=== PATIENT | female | born 1965 | race Caucasian/White ===

== ENCOUNTER 2025-06-24 12:23 | Outpatient (AMB) | payer MEDICARE, MEDICAID, SELFPAY ==
--- NOTE | 2025-06-24 13:26 | A.SPINEOV_ITS ---
Intake Visit Reasons: cervical stenosis Intake Note: Mrs. Cao is here today c/o neck and arm pain. MRI done @ [facility] (brought disc). Customer Service Dispatcher Required: No Assessment & Plan Assessment & Plan (1) Cervical radiculopathy: Code(s): M54.12 - Radiculopathy, cervical region Category: Medical Plan Dear Dr Dc, Thank you for referring Mrs Cao to our office today. 60-year-old female with previous history of lumbar diskectomy done in 2011 and 2017, baseline footdrop presents for evaluation of cervical spine issues that started in the middle of April. It is began as a subtle symptom in the back of her left scapular region and typically this kind of thing she could just massage away but it would not leave. Then she started to notice also stiffness in her neck with difficulty looking to the left. This transitioned ultimately in the intense pain that was shooting down her arm going into her forearm with tingling of her index finger. The tingling and numbness in the index finger scared her, she ultimately ended up at your office and underwent an MRI after a trial of some medications including gabapentin, [id number] pain relievers. More recently she has been on prednisone in his been feeling pretty good on that. The arm pain seems to have receded somewhat. The numbness in the fingers still there. She just started physical therapy a few days ago. She has been doing home traction without much success. No myelopathic symptoms. PMH: History of grand mal seizures which developed as an adult, she has been stable on medications but did have a seizure after 1 of her back surgeries. This was a stressful event because it ultimately ended with aspiration and a hospitalization. She has history of tubal ligation, laparoscopy in 2000 for endometriosis. No systemic disease, cardiopulmonary issues, renal liver etc.. Social hx: She quit smoking 1999 but smokes marijuana daily, occasionally uses alcohol Medications: Tegretol, Keppra, citalopram, hydrocodone for pain, sumatriptan for migraines and more recently on prednisone Allergies: Penicillin, tetanus shot, Dilantin, Lamictal, Bactrim Physical exam: Awake alert oriented no acute distress, she walks with a slight limp secondary to footdrop, she is wearing an AFO. Strength in the upper extremities is normal as is lower extremity with the exception of the left tibialis which is 0/5. The patient has slightly brisk reflexes but does not have Thomason's sign. No clonus. Imaging review: Cervical MRI done at [place] demonstrates straightening of the normal lordotic curvature of the cervical spine, she has degenerative disc disease at C5-6 with bilateral neuroforaminal stenosis and moderate central canal stenosis, C6-7 on the left there is moderate to severe neuroforaminal stenosis. Impression: 60-year-old female presents for evaluation of cervical radiculopathy that started in mid April. It seems to have gotten slightly better, but has not gone away. He is still giving her some difficulty when she sleeps her when she is doing activities. Steroids that she was started on recently seemed to have made a difference but we will see how it goes when she comes off them. She is anxious about undergoing any surgery because of the difficulties of the last operation she underwent that resulted in a seizure and aspiration. This is certainly reasonable and we do not have a reason to push her into surgery at this point given that she is feeling a little bit better. I encouraged her to continue with her physical therapy trial, see how that goes and if the pain returns or escalates that we would be happy to see her back. I think in the end if the pain does not go away Dr. Gomez would offer her anterior cervical fusion at possibly C5-6, and/or C6-7. Thank you for allowing us to care for your patient. The total time spent with this visit with this patient was 45 minutes reviewing history, physical exam, cervical MRI imaging review, and implementation of treatment plan or further diagnostic testing Naveed Gomez MD,PhD [facility] Coding Level of Care Code New Pt Level 4 (60249) Diagnoses Cervical radiculopathy M54.12
== END 2025-06-24 13:57 | disposition home or self-care (01) ==
LOC: HO.HNS 12:23
PROVIDERS: PCP Family Medicine; Referring Provider Family Medicine; Visit Provider Physician Assistant
DX: M54.12 Radiculopathy, cervical region (principal)
CPT/HCPCS: 99204

== ENCOUNTER → 2025-06-24 12:23 | Outpatient (BNVA) | payer MEDICARE, MEDICAID, SELFPAY | PROVIDERS: PCP Family Medicine; Referring Provider Family Medicine; Visit Provider Physician Assistant | DX: M54.12 Radiculopathy, cervical region (principal); Z87.891 Personal history of nicotine dependence | CPT/HCPCS: 99202 ==

== ENCOUNTER 2025-09-23 13:10 | Outpatient (AMB) | payer MEDICARE, MEDICAID, SELFPAY ==
--- NOTE | 2025-09-23 13:33 | A.SPINEOV_ITS ---
Intake Visit Reasons: 3 month f/u Intake Note: Ms. Cao is here today for her 3 month F/u. Precision Instrument And Tool Maker Required: No Assessment & Plan Assessment & Plan (1) Cervical radiculopathy: Code(s): M54.12 - Radiculopathy, cervical region Category: Medical Plan Mrs Cao is here in follow-up. She is doing significantly better. The numbness in her finger is markedly improve. She is no longer having debilitating left arm pain. Therefore it told her that there would be no indication for surgery unless the pain came back or got significantly worse like it was before. She seemed to be very successful with the physical therapy so she has continued with the exercises. I will see her back down the road if the pain returns. Total amount of time spent in this visit was 20 minutes in discussion of symptoms, cervical MRI imaging results and subsequent plan of care Naveed Gomez MD,PhD [facility] Coding Level of Care Code Est Pt Level 3 (89907) Diagnoses Cervical radiculopathy M54.12
== END 2025-09-23 13:51 | disposition home or self-care (01) ==
LOC: HO.HNS 13:11
PROVIDERS: PCP Family Medicine; Visit Provider Physician Assistant
DX: M54.12 Radiculopathy, cervical region (principal)
CPT/HCPCS: 99213

== ENCOUNTER → 2025-09-23 13:10 | Outpatient (BNVA) | payer MEDICARE, MEDICAID, SELFPAY | PROVIDERS: PCP Family Medicine; Visit Provider Physician Assistant | DX: M54.12 Radiculopathy, cervical region (principal) | CPT/HCPCS: 99212 ==